=== PATIENT | female | born 1985 | race Two or more races ===

== ENCOUNTER 2019-05-10 07:57 | Outpatient (CLI) | payer OTHER | END 2019-05-10 08:10 | disposition home or self-care (01) | LOC: RAD 07:57 | DX: M54.2 Cervicalgia (principal) ==

== ENCOUNTER 2019-12-09 10:03 | Outpatient (CLI) | payer OTHER | END 2019-12-09 10:22 | disposition home or self-care (01) | LOC: MRI 10:03 | PROVIDERS: ATTEND Physical Medicine & Rehabilitation | DX: M54.2 Cervicalgia (principal); M54.12 Radiculopathy, cervical region | CPT/HCPCS: 72141 ==